=== PATIENT | male | born 1990 ===

== ENCOUNTER 2022-02-12 14:09 | Emergency (ER) | payer SELFPAY ==
[2022-02-12 15:23] LABS: ANION GAP 15.8 mEq/L (7-13)
[2022-02-12 17:02] LABS: CORONAVIRUS COVID-19 NAA NEGATIVE (NEGATIVE)
== END 2022-02-12 17:56 | disposition home or self-care (01) ==
LOC: DL.ED 14:09
DX: R50.9 Fever, unspecified (principal); Z87.891 Personal history of nicotine dependence; Z20.822 Contact with and (suspected) exposure to COVID-19
CPT/HCPCS: 0240U; 36415; 71045; 80053; 83605; 85025; 87040; 99283